=== PATIENT | female | born 1975 | race Caucasian/White ===

== ENCOUNTER 2021-03-18 17:27 | Emergency (ER) ==
[2021-03-18] MEDS ORDERED: Proparacaine 0.5% Opth 15 ML BOT ONE (17:43)
[2021-03-18] MEDS ORDERED: Fluorescein Opthalmic Strip ONE (17:43)
== END 2021-03-18 18:36 | disposition home or self-care (01) ==
LOC: CSHERS 17:27
DX: H10.9 Unspecified conjunctivitis (principal); I10 Essential (primary) hypertension
CPT/HCPCS: 99283